=== PATIENT | female | born 1945 | race Caucasian/White ===

== ENCOUNTER 2017-04-14 01:52 | Inpatient (IN) | payer MEDICARE ==
[~2017-04-14] VITALS: Ht 152.4 cm; Wt 75.2 kg
[2017-04-14 01:55] VITALS: BP 108/56; PULSE 66; RESP 16; TEMP 98.1; O2SAT 98
--- NOTE | 2017-04-14 02:23 | PD ---
HPI Chief Complaint: Fall Time Seen by Provider: 02:02 Travel History International Travel<30 days: No Contact w/Intl Traveler<30days: No Traveled to known affect area: No History of Present Illness HPI The patient is a 71-year-old female who presents to the emergency department for a right wrist injury after falling. The patient states she went to check on an elderly neighbor earlier tonight in which she stepped back off of the porch for her neighbor opened a door she fell backwards injuring her right wrist. She does state she struck the right aspect of her head resulting in an abrasion but denies any loss of consciousness. She denies taking any blood thinners or anticoagulants. She does complain of right wrist pain with an obvious deformity, pain is moderate to severe, worse with movement, slightly alleviated with ice. The patient is right-hand dominant. She also notes abrasion to right lower extremity but was able to ambulate without difficulty. The patient does have a history of breast cancer, hypertension, and hyperlipidemia. The patient's primary physician is Dr. Caleb oJseph. [facility] Past Medical History Narrative Medical Hypertension, hyperlipidemia, breast cancer Cardiovascular Problems: Yes (HTN) Past Surgical History Narrative Surgical Lumpectomy with lymph node removal, tonsillectomy Social History Alcohol Use: Yes Tobacco Use: No Allergies-Medications (Allergen,Severity, Reaction): Coded Allergies: No Known Allergies (Unverified , 04/14/17) Review of Systems Except as stated in HPI: all other systems reviewed are Neg HENT: No: Headaches, Neck Pain Cardiovascular: No: Chest Pain or Discomfort Respiratory: No: Shortness of Breath Gastrointestinal: Positive: Nausea, No: Vomiting, Abdominal Pain Musculoskeletal: Positive: Limited ROM, Edema, Pain Neurologic: No: Paresthesia, Sensory Disturbance Physical Exam Narrative GENERAL: Awake, alert, pleasant 71-year-old female who appears her stated age and is in no acute respiratory distress. SKIN: Focused skin assessment warm/dry. HEAD: Superficial abrasion of the right temporal area. EYES: Pupils equal and round. Pupils are 3 mm bilateral and reactive. EOMs are intact. ENT: No nasal bleeding or discharge. Mucous membranes pink and moist. NECK: Trachea midline. No JVD. No tenderness of the cervical vertebrae. CARDIOVASCULAR: Regular rate and rhythm. No murmur appreciated. RESPIRATORY: No accessory muscle use. Clear to auscultation. Breath sounds equal bilaterally. GASTROINTESTINAL: Abdomen soft, non-tender, nondistended. No rebound tenderness. MUSCULOSKELETAL: Obvious deformities to the right wrist. Positive right radial pulse. Limited ability to move the fingers of the right hand or flex/extend the right wrist secondary to pain. No tenderness of the right elbow or proximal right radius/ulna. The patient does have a small puncture wound on the radial aspect, flexor surface that is less than 0.5 cm in diameter. I suspect open fracture which self reduced. NEUROLOGICAL: Awake and alert. No obvious cranial nerve deficits. Motor grossly within normal limits. Normal speech. Sensation is intact over the radial, median, and ulnar distribution of the right hand. PSYCHIATRIC: Appropriate mood and affect; insight and judgment normal. Data Data Last Documented VS Vital Signs Date Time Temp Pulse Resp B/P (MAP) Pulse Ox O2 Delivery O2 Flow Rate FiO2 04/14/17 03:20 96 Nasal Cannula 3.00 04/14/17 01:55 98.1 66 16 108/56 (73) Orders Orders Complete Blood Count With Diff (04/14/17 02:18) Basic Metabolic Panel (Bmp) (04/14/17 02:18) Act Partial Throm Time (Ptt) (04/14/17 02:18) Prothrombin Time / Inr (Pt) (04/14/17 02:18) Wrist, Limited (Ap&Lat) (04/14/17 ) Morphine Inj (Morphine Inj) (04/14/17 02:30) Ondansetron Inj (Zofran Inj) (04/14/17 02:30) Sodium Chlor 0.9% 1000 Ml Inj (Ns 1000 M (04/14/17 02:30) Propofol 200 Mg/20 Ml Inj (Diprivan 200 (04/14/17 03:15) Cefazolin 2 Gm Premix (Ancef 2 Gm Premix (04/14/17 03:30) Gentamicin 80 Mg Premix (Gentamicin 80 M (04/14/17 03:30) Wrist, Limited (Ap&Lat) (04/14/17 ) Consult Orthopedic (04/14/17 ) Tetanus/Diphtheria Tox Adult (Tetanus/Di (04/14/17 03:45) (Hub Use Only)Inp Phy Cons/Ref (04/14/17 ) Admit Order (Ed Use Only) (04/14/17 03:58) Labs Laboratory Tests Test 04/14/17 02:25 White Blood Count 17.6 TH/MM3 Red Blood Count 4.16 MIL/MM3 Hemoglobin 11.7 GM/DL Hematocrit 36.2 % Mean Corpuscular Volume 87.0 FL Mean Corpuscular Hemoglobin 28.2 PG Mean Corpuscular Hemoglobin Concent 32.4 % Red Cell Distribution Width 16.2 % Platelet Count 312 TH/MM3 Mean Platelet Volume 7.8 FL Neutrophils (%) (Auto) 50.8 % Lymphocytes (%) (Auto) 41.4 % Monocytes (%) (Auto) 5.6 % Eosinophils (%) (Auto) 1.1 % Basophils (%) (Auto) 1.1 % Neutrophils # (Auto) 8.9 TH/MM3 Lymphocytes # (Auto) 7.3 TH/MM3 Monocytes # (Auto) 1.0 TH/MM3 Eosinophils # (Auto) 0.2 TH/MM3 Basophils # (Auto) 0.2 TH/MM3 CBC Comment AUTO DIFF Prothrombin Time 9.5 SEC Prothromb Time International Ratio 0.9 RATIO Activated Partial Thromboplast Time 21.4 SEC Blood Urea Nitrogen 14 MG/DL Creatinine 0.62 MG/DL Random Glucose 133 MG/DL Calcium Level 8.4 MG/DL Sodium Level 136 MEQ/L Potassium Level 5.4 MEQ/L Chloride Level 106 MEQ/L Carbon Dioxide Level 22.3 MEQ/L Anion Gap 8 MEQ/L Estimat Glomerular Filtration Rate 95 ML/MIN MDM Medical Decision Making Medical Screen Exam Complete: Yes Emergency Medical Condition: Yes Medical Record Reviewed: Yes Interpretation(s) Last Impressions Wrist X-Ray 04/14/17 0000 Signed Impressions: Service Date/Time: Friday, April 14, 2017 02:22 - CONCLUSION: Distal radial fracture with significant posterior displacement of the hand and wrist. There is also a mildly displaced spiral fracture of the 4th metacarpal. Dale Benavidez MD Postreduction x-ray reveals improved alignment Laboratory Tests Test 04/14/17 02:25 White Blood Count 17.6 TH/MM3 Red Blood Count 4.16 MIL/MM3 Hemoglobin 11.7 GM/DL Hematocrit 36.2 % Mean Corpuscular Volume 87.0 FL Mean Corpuscular Hemoglobin 28.2 PG Mean Corpuscular Hemoglobin Concent 32.4 % Red Cell Distribution Width 16.2 % Platelet Count 312 TH/MM3 Mean Platelet Volume 7.8 FL Neutrophils (%) (Auto) 50.8 % Lymphocytes (%) (Auto) 41.4 % Monocytes (%) (Auto) 5.6 % Eosinophils (%) (Auto) 1.1 % Basophils (%) (Auto) 1.1 % Neutrophils # (Auto) 8.9 TH/MM3 Lymphocytes # (Auto) 7.3 TH/MM3 Monocytes # (Auto) 1.0 TH/MM3 Eosinophils # (Auto) 0.2 TH/MM3 Basophils # (Auto) 0.2 TH/MM3 CBC Comment AUTO DIFF Prothrombin Time 9.5 SEC Prothromb Time International Ratio 0.9 RATIO Activated Partial Thromboplast Time 21.4 SEC Blood Urea Nitrogen 14 MG/DL Creatinine 0.62 MG/DL Random Glucose 133 MG/DL Calcium Level 8.4 MG/DL Sodium Level 136 MEQ/L Potassium Level 5.4 MEQ/L Chloride Level 106 MEQ/L Carbon Dioxide Level 22.3 MEQ/L Anion Gap 8 MEQ/L Estimat Glomerular Filtration Rate 95 ML/MIN Differential Diagnosis Differential diagnosis includes fracture, dislocation, contusion, hematoma, closed head injury, abrasion. Narrative Course IV was established, labs are drawn and sent, and the patient was placed on cardiac telemetry monitoring and continuous pulse oximetry monitoring. X-ray of the right wrist was obtained. The patient received morphine, Zofran, and IV fluids. X-ray reveals a distal radial fracture with intra-articular displacement and involvement. I do discussion regarding conscious sedation with the patient who is agreeable for conscious sedation. The patient had IV fluids running, with respiratory therapy at bedside, nursing staff at bedside, and certified control systems technician at bedside the patient was administered propofol and the right wrist fracture was reduced. It was noted the patient had a small puncture wound on the distal radial aspect consistent with open fracture which had self reduced through the skin. After reduction the patient was placed in a splint and postreduction x-rays were obtained. The patient did have a Betadine dressing applied under the splint. The patient was administered Ancef and gentamicin. The patient will be kept nothing by mouth. Routine consult was place for orthopedics. The patient's primary physician was Dr. Caleb Joseph , therefore, [facility] to Dr. Kessler. Procedures Procedure Narrative After the risks and benefits were discussed the following procedure was performed: MODERATE SEDATION: The patient was placed on a room cleaner and pulse oximetry. An ambu bag and suction was immediately available at bedside. The patient was monitored by the nurse. Oxygen saturation, heart rate and blood pressure were monitored. Procedural sedation was acheived using 70 mg of propofol. The patient was observed until awake and alert. Procedural Sedation time in attendance was 30 minutes. The right wrist fracture was reduced under conscious sedation, Betadine dressing was applied as there was a small puncture wound at the site of the fracture. Sugar tong splint was applied and postreduction x-ray was obtained. The patient was neurovascularly intact after the procedure. The patient tolerated the procedure without difficulty and there was no obvious complications. Physician Communication Physician Communication The patient's primary physician is Dr. Caleb Joseph, therefore, [facility] I discussed the patient with Dr. Koenig who agrees with admission to Dr. Kessler. Diagnosis Primary Impression: Right wrist fracture Qualified Codes: S62.101B - Fracture of unspecified carpal bone, right wrist, initial encounter for open fracture Additional Impression: Metacarpal bone fracture Qualified Codes: S62.324A - Displaced fracture of shaft of fourth metacarpal bone, right hand, initial encounter for closed fracture Admitting Information Admitting Physician Requests: Admit Condition: Stable Gerber Banks MD Apr 14, 2017 02:23
[2017-04-14] MEDS ORDERED: SODIUM CHLOR 0.9% 1000 ML INJ 1,000 ML IV SCH ×2 (02:30→04:15)
[2017-04-14] MEDS ORDERED: MORPHINE SULFATE 4 MG/ML INJ IV PUSH ONE (02:30)
[2017-04-14] MEDS ORDERED: ONDANSETRON HCL 4 MG/2 ML VIAL IV PUSH ONE (02:30)
--- NOTE | 2017-04-14 02:49 | RADRPT ---
EXAM DATE/TIME: 04/14/2017 02:22 [facility] COMPARISON: No previous studies available for comparison. INDICATIONS : Pt fell, landed on right wrist MEDICAL HISTORY : None. SURGICAL HISTORY : None. ENCOUNTER: Initial ACUITY: 1 day PAIN SCORE: 8/10 LOCATION: Right Wrist FINDINGS: There is a transverse fracture through the radial metaphysis with greater than one shaft width dorsal displacement of the hand/wrist with respect to the radial shaft. There is also a spiral fracture of the 4th metacarpal bone with mild angulation. The radial epiphyseal fragment remains in alignment w ith the carpus. CONCLUSION: Distal radial fracture with significant posterior displacement of the hand and wrist. There is also a mildly displaced spiral fracture of the 4th metacarpal. Dale Benavidez MD on April 14, 2017 at 2:45 Board Certified Radiologist. This report was verified electronically.
[2017-04-14 03:03] LABS: APTT (PATIENT) 21.4 SEC (24.3-30.1); INTERNATIONAL NORMALIZED RATIO 0.9 RATIO; PROTHROMBIN TIME - PATIENT 9.5 SEC (9.8-11.6)
[2017-04-14 03:09] LABS: BICARBONATE 22.3 MEQ/L (21.0-32.0)
[2017-04-14 03:10] LABS: POTASSIUM 5.4 MEQ/L (3.5-5.1)
[2017-04-14] MEDS ORDERED: PROPOFOL 200 MG/20 ML AMP IV ONE (03:15)
[2017-04-14 03:19] LABS: AUTOMATED NEUTROPHIL # 8.9 TH/MM3 (1.8-7.7); BASOPHIL # 0.2 TH/MM3 (0-0.2); BASOPHIL % 1.1 % (0.0-2.0); EOSINOPHIL # 0.2 TH/MM3 (0-0.4); EOSINOPHIL % 1.1 % (0.0-4.0); HEMATOCRIT 36.2 % (35.0-46.0); LYMPH % 41.4 % (9.0-44.0); LYMPHOCYTE # 7.3 TH/MM3 (1.0-4.8); MEAN CORPUSCULAR HEMOGLOBIN 28.2 PG (27.0-34.0); MEAN CORPUSCULAR HGB CONC 32.4 % (32.0-36.0); MONO % 5.6 % (0.0-8.0); NEUT % 50.8 % (16.0-70.0); PLATELET COUNT 312 TH/MM3 (150-450); RED BLOOD COUNT 4.16 MIL/MM3 (4.00-5.30); RED CELL DISTRIBUTION WIDTH 16.2 % (11.6-17.2); WHITE BLOOD COUNT 17.6 TH/MM3 (4.0-11.0)
[2017-04-14 03:20] VITALS: O2SAT 96; O2SAT 98
[2017-04-14 03:22] LABS: HEMO FLAGS AUTO DIFF
[2017-04-14] MEDS ORDERED: GENTAMICIN 80 MG PREMIX 100 ML IV ONE (03:30)
[2017-04-14] MEDS ORDERED: ceFAZolin 2 GM PREMIX 50 ML IV ONE (03:30)
[2017-04-14] MEDS ORDERED: TETANUS/DIPHTHERIA TOXOID ADULT 0.5 ML VIAL IM ONE (03:45)
--- NOTE | 2017-04-14 04:14 | RADRPT ---
EXAM DATE/TIME: 04/14/2017 03:37 [facility] COMPARISON: WRIST RIGHT LIMITED(AP & LAT), April 14, 2017, 2:22. INDICATIONS : Post reduction of a right wrist fracture-dislocation. MEDICAL HISTORY : None. SURGICAL HISTORY : None. ENCOUNTER: Subsequent ACUITY: 1 day PAIN SCORE: 9/10 LOCATION: Right wrist FINDINGS: 2 views of the hand and distal forearm are performed in cast. There has been partial reduction of th e distal radial fracture. The fracture of the 4th metacarpal is in near-anatomic alignment as well. CONCLUSION: Status post reduction of distal radial and 4th metacarpal fractures, in cast. Dale Benavidez MD on April 14, 2017 at 4:11 Board Certified Radiologist. This report was verified electronically.
[2017-04-14] MEDS ORDERED: ONDANSETRON HCL 4 MG/2 ML VIAL IV PUSH PRN (04:15)
[2017-04-14] MEDS ORDERED: MORPHINE SULFATE 4 MG/ML INJ IV PUSH PRN ×2 (04:15→11:15)
[2017-04-14 04:36] LABS: CORRECTED NUCLEATED RBC 1 /100 WBC (0-0); MYELOCYTES 2 % (0-0); NEUTROPHIL # MANUAL DIFF 11.4 TH/MM3 (1.8-7.7); POLYS (SEG NEUTROPHILS) 63 % (16-70); WBC DIFF SAMPLE 100
[2017-04-14 04:37] LABS: PLATELET ESTIMATE SMEAR NORMAL (NORMAL); PLATELET MORPHOLOGY NORMAL (NORMAL); SCAN/DIFF FINAL DIFF MANUAL
[2017-04-14] MEDS ORDERED: GENTAMICIN 80 MG PREMIX 100 ML ONE (05:52)
[2017-04-14 06:30] VITALS: BP 166/78; PULSE 82; RESP 20; TEMP 98; O2SAT 96
[2017-04-14] MEDS ORDERED: POVIDONE IODINE 5% (ANTISEPSIS KIT) 4 APPLICATIONS EACH NARE PRN (06:45)
[2017-04-14] MEDS ORDERED: INSULIN HUMAN REGULAR 1,000 UNITS/10 ML VIAL SQ PRN (06:45)
[2017-04-14] MEDS ORDERED: CHLORHEXIDINE GLUCONATE 2 % 1 PACK (2 CLOTHS) TOPICAL PRN (06:45)
[2017-04-14] MEDS ORDERED: LACTATED RINGER'S 1000 ML IV PRN (06:45)
[2017-04-14 08:00] VITALS: BP 154/70; PULSE 91; RESP 18; TEMP 97.6; O2SAT 100
[2017-04-14] MEDS ORDERED: FAMOTIDINE 20 MG/2 ML VIAL ONE (09:31)
[2017-04-14] MEDS ORDERED: BUPIVACAINE HCL PF 0.25% 30 ML VIAL ONE (09:32)
[2017-04-14] MEDS ORDERED: LIDOCAINE HCL 1% 50 ML VIAL ONE (09:32)
[2017-04-14] MEDS ORDERED: GENTAMICIN SULFATE 80 MG/2 ML VIAL ONE (09:32)
[2017-04-14] MEDS ORDERED: ACETAMINOPHEN 1000 MG/100 ML 100 ML IV ONE (09:37)
--- NOTE | 2017-04-14 10:04 | HHI.HP ---
[facility] Primary Care Physician Caleb Joseph DO Admission Diagnosis open fracture right wrist, fourth metacarpal fracture Diagnoses: (1) Right wrist fracture Diagnosis: Principal (2) Metacarpal bone fracture Diagnosis: Principal Chief Complaint: 71-year-old female with accidental fall, at her neighbor's house on the back porch. She accidentally fell backwards injuring her right wrist. Denies any loss of consciousness but did bump the right side of her scalp. Small abrasion noted. Has small abrasion to right lower extremity, no obvious bleeding noted now. Currently patient is alert, awake, pain management for right wrist and forearm. Dressing and splint are secured, clean dry and intact Travel History International Travel<30 Days: No Contact w/Intl Traveler <30 Da: No Traveled to Known Affected Are: No History of Present Illness This is a 71-year-old white female who presented to the emergency room status post fall when coming out of her neighbors back porch. She she fell backwards falling to her right side injuring her right wrist right forearm right lower leg in the Route side of her scalp. Patient denied losing any consciousness. She does consume alcohol on an every other day basis according to her and her . This includes cognac and beer consumption. Currently patient is awake alert a fairly good historian. States that she has been fairly healthy, fall was accidental. Patient denies any chest pain, no shortness of breath, no dizziness, she denies any dysuria, and before this accident had been in her usual state of health. Review of Systems Musculoskeletal: COMPLAINS OF: Joint pain (right wrist right forearm), Joint Swelling (status post fall and fracture) Hematologic/lymphatic: COMPLAINS OF: Bruising (right lower leg) Past Family Social History Past Medical History Breast cancer Hypertension Hyperlipidemia Etoh Past Surgical History Left arm lymph node removal Tonsillectomy Reported Medications not listed Allergies: Coded Allergies: No Known Allergies (Unverified , 04/14/17) Active Ordered Medications Administered Medications Medications (Trade) Dose Ordered Sig/Blade Route PRN Reason Start Time Stop Time Status Last Admin Dose Admin Sodium Chloride 1,000 ml @ 100 mls/hr Q10H IV 04/14/17 04:15 04/14/17 04:38 Social History Denies any tobacco Alcohol every other day, which includes cognac and beer currently lives at home with her Physical Exam Vital Signs Vital Signs Date Time Temp Pulse Resp B/P (MAP) Pulse Ox O2 Delivery O2 Flow Rate FiO2 04/14/17 08:59 99.6 95 22 152/64 (93) 97 04/14/17 08:00 97.6 91 18 154/70 (98) 100 04/14/17 06:34 04/14/17 06:30 98.0 82 20 166/78 (107) 96 04/14/17 03:20 96 Nasal Cannula 3.00 04/14/17 03:20 98 04/14/17 03:20 96 3.00 04/14/17 01:55 98.1 66 16 108/56 (73) 98 Room Air Physical Exam GENERAL: This is a elderly well-developed patient, resting in the bed awake, responsive SKIN: Small abrasion on right side of for head, small abrasion on right lower leg Cool and dry. HEAD: Normocephalic. Alert oriented EYES: Pupils equal round and reactive. Extraocular motions intact. No scleral icterus. No injection or drainage. ENT: Nose without bleeding, purulent drainage or septal hematoma. Throat without erythema, tongue is midline Airway patent. NECK: Trachea midline. CARDIOVASCULAR: Regular rate and rhythm without murmurs, gallops, or rubs. RESPIRATORY: Clear to auscultation. GASTROINTESTINAL: Abdomen soft, non-tender, bowel sounds soft MUSCULOSKELETAL: Extremities without clubbing, cyanosis, or edema. NEUROLOGICAL: Awake and alert. Normal speech., Fair to good historian Laboratory Laboratory Tests Test 04/14/17 02:25 White Blood Count 17.6 Red Blood Count 4.16 Hemoglobin 11.7 Hematocrit 36.2 Mean Corpuscular Volume 87.0 Mean Corpuscular Hemoglobin 28.2 Mean Corpuscular Hemoglobin Concent 32.4 Red Cell Distribution Width 16.2 Platelet Count 312 Mean Platelet Volume 7.8 Neutrophils (%) (Auto) 50.8 Lymphocytes (%) (Auto) 41.4 Monocytes (%) (Auto) 5.6 Eosinophils (%) (Auto) 1.1 Basophils (%) (Auto) 1.1 Neutrophils # (Auto) 8.9 Lymphocytes # (Auto) 7.3 Monocytes # (Auto) 1.0 Eosinophils # (Auto) 0.2 Basophils # (Auto) 0.2 CBC Comment AUTO DIFF Differential Total Cells Counted 100 Neutrophils % (Manual) 63 Lymphocytes % 32 Monocytes % 3 Neutrophils # (Manual) 11.4 Myelocytes 2 Nucleated Red Blood Cells 1 Differential Comment FINAL DIFF MANUAL Platelet Estimate NORMAL Platelet Morphology Comment NORMAL Red Cell Morphology Comment NORMAL Prothrombin Time 9.5 Prothromb Time International Ratio 0.9 Activated Partial Thromboplast Time 21.4 Blood Urea Nitrogen 14 Creatinine 0.62 Random Glucose 133 Calcium Level 8.4 Sodium Level 136 Potassium Level 5.4 Chloride Level 106 Carbon Dioxide Level 22.3 Anion Gap 8 Estimat Glomerular Filtration Rate 95 Result Diagram: 04/14/175 04/14/17 0225 Imaging Last Impressions Wrist X-Ray 04/14/17 0000 Signed Impressions: Service Date/Time: Friday, April 14, 2017 03:37 - CONCLUSION: Status post reduction of distal radial and 4th metacarpal fractures, in cast. Dale Benavidez MD Course Reduction of right wrist in the emergency room setting Plan for surgical procedure today with right wrist right fourth metacarpal spiral fracture. Medical management with monitoring for fever, abnormal heart rate or respiratory rate Blood pressure management, medical management with medications Monitor for any increased anxiety or changes in personality related to outpatient EtOH usage Septic Shock Reassessment Heart: Regular rate and rhythm Lungs: Clear Skin: Warm, Moist, Reliance Peripheral Pulses: Bounding Left Radial Bounding Right Popliteal Bounding Left Popliteal Bounding Right Dorsalis Pedis Bounding Left Dorsalis Pedis Bounding Right Posterior Tibial Bounding Left Posterior Tibial Capillary Refill: Brisk Caprini VTE Risk Assessment Caprini VTE Risk Assessment: Mod/High Risk (score >= 2) VTE Pharm Contraindication: fall with fractures Caprini Risk Assessment Model Point Value = 1 Point Value = 2 Point Value = 3 Point Value = 5 Age 41-60 Minor surgery BMI > 25 kg/m2 Swollen legs Varicose veins or History of unexplained or recurrent spontaneous Oral contraceptives or hormone replacement Sepsis (< 1 month) Serious lung disease, including pneumonia (< 1 month) Abnormal pulmonary function Acute myocardial infarction Congestive heart failure (< 1 month) History of inflammatory bowel disease Medical patient at bed rest Age 61-74 Arthroscopic surgery Major open surgery (> 45 min) Laparoscopic surgery (> 45 min) Malignancy Confined to bed (> 72 hours) Immobilizing plaster cast Central venous access Age >= 75 History of VTE Family history of VTE Factor V Leiden Prothrombin [id number] Lupus anticoagulant Anticardiolipin antibodies Elevated serum homocysteine Heparin-induced thrombocytopenia Other congenital or acquired thrombophilia Stroke (< 1 month) Elective arthroplasty Hip, pelvis, or leg fracture Acute spinal cord injury (< 1 month) Prophylaxis Regimen Total Risk Factor Score Risk Level Prophylaxis Regimen 0-1 Low Early ambulation 2 Moderate Order ONE of the following: *Sequential Compression Device (SCD) *Heparin 5000 units SQ BID 3-4 Higher Order ONE of the following medications: *Heparin 5000 units SQ TID *Enoxaparin/Lovenox 40 mg SQ daily (WT < 150 kg, CrCl > 30 mL/min) *Enoxaparin/Lovenox 30 mg SQ daily (WT < 150 kg, CrCl > 10-29 mL/min) *Enoxaparin/Lovenox 30 mg SQ BID (WT < 150 kg, CrCl > 30 mL/min) AND/OR *Sequential Compression Device (SCD) 5 or more Highest Order ONE of the following medications: *Heparin 5000 units SQ TID (Preferred with Epidurals) *Enoxaparin/Lovenox 40 mg SQ daily (WT < 150 kg, CrCl > 30 mL/min) *Enoxaparin/Lovenox 30 mg SQ daily (WT < 150 kg, CrCl > 10-29 mL/min) *Enoxaparin/Lovenox 30 mg SQ BID (WT < 150 kg, CrCl > 30 mL/min) AND *Sequential Compression Device (SCD) Assessment and Plan Assessment and Plan Status post fall Fracture shaft of the fourth metacarpal bone right hand Status post fall Fracture of left distal radial wrist Orthopedic consult, appreciate plan a care, possible surgery pending Postop care and pain management per orthopedic team Pulse checks Leukocytosis, probable secondary to injury/fractures. Monitor labs Hyperkalemia mild, IV hydration and recheck labs am. EtOH usage Medical management with monitoring for any agitation or change in mental status Medications reconciled History of hypertension Medical management currently blood pressure 166/78, home meds reconciled DVT prophylaxis PUD prophylaxis Code Status Full code full aggressive care Discussed With: Family ( and patient's sister, and patient), Other (Dr. Kessler, seen on his behalf) Physician Certification 2 Midnight Certification Type: Admission for Inpatient Services Order for Inpatient Services The services are ordered in accordance with Medicare regulations or non- Medicare payer requirements, as applicable. In the case of services not specified as inpatient-only, they are appropriately provided as inpatient services in accordance with the 2-midnight benchmark. Estimated LOS (days): 4 4 days is the estimated time the patient will need to remain in the hospital, assuming treatment plan goals are met and no additional complications. Post-Hospital Plan: Not yet determined Problem Qualifiers (1) Right wrist fracture: Qualified Codes: S62.101B - Fracture of unspecified carpal bone, right wrist, initial encounter for open fracture (2) Metacarpal bone fracture: Qualified Codes: S62.324A - Displaced fracture of shaft of fourth metacarpal bone, right hand, initial encounter for closed fracture Tyra Sullivan Apr 14, 2017 10:03
[2017-04-14] MEDS ORDERED: BUPIVACAINE/EPINEPHRINE 0.25% 50 ML VIAL ONE (10:21)
--- NOTE | 2017-04-14 10:22 | MB ---
cc: MADDY COLE DATE OF CONSULTATION: 04/14/2017 REASON FOR CONSULTATION: Right possible open distal radius fracture with fourth metacarpal shaft fracture. HISTORY The patient is a 71-year-old female who was going over the hernia risk out to go check on an elderly woman she went up to the front porch the door was opening she stepped back and she tripped falling on to the right arm but she also scraped up multiple other body areas. She noticed immediate pain and deformity about the wrist. The patient was brought to [facility] [place] where she was found to have significantly displaced distal radius fracture of fourth metacarpal fracture. The patient had a closed reduction performed per the emergency room physician there is a suspicion that this is an open fracture. The patient says she did notice abrasions about the wrist. The patient denies any problems with the wrist in the past. She noted specific numbness or tingling about the fingers. Of note, the patient has a history of breast resection on the left side with a history of lymphedema of the left upper extremity. She says she has abrasions on the lower extremities as well. PAST MEDICAL HISTORY: Medical history is positive for hypertension, hyperlipidemia, breast cancer. PAST SURGICAL HISTORY Lumpectomy Tonsillectomy. SOCIAL HISTORY The patient does not drink alcohol or smoke. ALLERGIES NO KNOWN DRUG ALLERGIES. REVIEW OF SYSTEMS 12 point review of systems is negative except as noted in history of present illness. PHYSICAL EXAMINATION: VITAL SIGNS: The patient is vitals show a temperature 98.0, pulse is 82, respirations 20, blood pressure 166/78. IN GENERAL: The patient is awake, alert and oriented x3. She has normal affect insight and judgment. She is in no significant acute distress currently. HEAD, EYES, EARS, NOSE, AND THROAT: Her head is atraumatic. Oropharynx is moist. Extraocular muscles intact NECK: Her neck is supple. HEART: The heart is regular rate and rhythm. LUNGS: Clear excision bilaterally. ABDOMEN: Soft, nontender, nondistended. BACK: The back has no CVA tenderness. EXTREMITIES: Examination of the right upper extremities currently splinted. She has normal sensation to the ulnar and median nerves. She has difficulty moving her fingers due to pain I do not see a lot of swelling about the fingers. There is a little bit of bloody drainage. The left upper extremity had good range of motion. She is couple small abrasions on the dorsal aspect of the long finger in the palm but no obvious open significant wounds. I do not see any significant swelling about the left upper extremity. Even with a history of lymphedema. Examination of lower extremity shows she has some scattered abrasions on the lower extremities I do not see any significant swelling about the knees or ankles. She moves the toes well on both feet. She has an IV in the left foot. LABORATORY FINDINGS: Laboratory studies reveal white cell count of 17.6, hematocrit 36.2, platelets of out 312, coagulation INR 0.9. Chemistries 0.62 passive 5.4, glucose 133, calcium 8.4. RADIOLOGY: X-rays I reviewed the x-rays including reports, There are two sets of x-rays showing that the patient has a significantly displaced distal radius fracture which may be intra-articular. There is then closed reduction film which is splinted which shows much better alignment but still significant displacement angulation. There is a fourth metacarpal shaft fracture which is oblique in nature with just some mild displacement without significant angulation. IMPRESSION: Impression is right open distal radius fracture displaced and angulated status post closed reduction. Right hand fourth metacarpal shaft fracture mildly displaced. DECISION MAKING: I have reviewed the diagnosis in detail with the patient, I do recommend urgent surgical management for evaluation of the wrist as she may require irrigation and debridement for possible open fracture. Additionally, I do recommend of open reduction internal fixation versus external fixation of the wrist given the significant displacement and angulation. At the time of surgery. We can make definitive to the decision if we want to proceed with an open reduction internal fixation of the fourth metacarpal versus just casting of this area. She understands that there is a very serious problem especially given possibility of open fracture of the wrist and that she required intravenous antibiotics and she does have potential for infection which required surgical management in the repeat nature. She understands the risks of surgery include on to injury also bleeding, infection failure of the for operation, continued pain, loss range of motion in associated joints, DVT, pulmonary embolus, pneumonia and . The patient had does understand these risks also wants to follow up with surgical management. Maddy Cole MD /antionette /7:35 AM /9:14 AM
[2017-04-14] MEDS ORDERED: SODIUM CHLORIDE 0.9% FLUSH 10 ML FLUSH IV FLUSH PRN (11:15)
[2017-04-14] MEDS ORDERED: diphenhydrAMINE HCL 25 MG CAP PO PRN (11:15)
[2017-04-14] MEDS ORDERED: NALOXONE HCL 0.4 MG/ML AMP IV PRN (11:15)
[2017-04-14] MEDS ORDERED: Post-op Orders (for Pharmacy) MISC XX ONE (11:15)
[2017-04-14] MEDS ORDERED: ACETAMINOPHEN/HYDROcodone 325 MG/5 MG TAB PO PRN (11:15)
[2017-04-14] MEDS ORDERED: MAGNESIUM HYDROXIDE SUSP 30 ML CUP PO PRN (11:15)
[2017-04-14] MEDS ORDERED: MISCELLANEOUS PHARMACY INFORMATION XX ONE (11:15)
[2017-04-14] MEDS ORDERED: MISCELLANEOUS NURSING INFORMATION XX PRN (11:15)
--- NOTE | 2017-04-14 11:20 | PD.OP ---
cc: Marvin Veras MD Operative Report Right open distal radius fracture and closed fourth metacarpal fracture Postoperative Diagnosis: Right distal radius fracture 3 part intra-articular, closed. Right closed fourth metacarpal shaft fracture. Right forearm abrasion. Procedure: Right distal radius fracture, three-part intra-articular open reduction and internal fixation. Right fourth metacarpal shaft fracture open reduction and internal fixation. Anesthesia: Gen. Surgeon: Marvin Veras Environmental Field Services Technician(s): PACO Echevarria The surgical procedure was assisted by my Advanced Registered Nurse Practitioner. My INSPECTOR BALANCE WHEEL MOTION presence was necessary throughout this case for the manipulation and positioning of the surgical extremity. My INSPECTOR BALANCE WHEEL MOTION was assisting me throughout the duration of this procedure. The skill set of an Advance Registered Nurse Practitioner was medically necessary to complete this procedure. During the surgical case, the surgical instrument maker was working at the back table and the Advance Registered Nurse Practitioner was directly assisting me. Operation and Findings: Tourniquet time: 34 minutes at 250 mmHg of pressure Estimated blood loss: Minimal cc The patient received intravenous vancomycin and Ancef. After the appropriate anesthesia was administered, the patient's arm was prepped and draped in the usual sterile fashion. Local anesthetic was given, and the arm was exsanguinated. The tourniquet was raised to 250 mmHg of pressure. We made a standard incision over the volar aspect of the forearm. We then dissected through the flexor carpi radialis sub- sheath. The pronator quadratus was reflected. We now visualized the distal radius fracture very well. The fracture was anatomically reduced both visually and via fluoroscopy. We provisionally held the fracture reduced and then applied a Synthes precontoured distal radius plate into the appropriate position. The plate was secured to the distal radius first with the sliding screw hole. This was then followed by locking screws distally and proximally. We took final fluoroscopic imaging of the wrist. We found no intra-articular penetration of the screws. The patient had full range of motion of the wrist with no crepitus. We then turned our attention to the fourth metacarpal shaft fracture. We visualized this fluoroscopy which showed mild displacement. We decided to move forward with an ORIF. Dorsal incision was made on the hand. We identified the extensor tendon. This was gently retracted to the side. We dissected down to the fracture. We found the fracture to be oblique in nature. We anatomically reduced the fracture and held this with a fracture reduction clamp. We then applied a Synthes 1.5 T locking plate on the dorsal aspect of the fourth metacarpal. We secured this with multiple locking screws. We were able to achieve 4 locking screws proximally and 3 locking screws distally. We made sure that the distal screws did not penetrate onto the volar aspect of the articular cartilage when the finger was in full flexion. The fracture remained anatomic. The tourniquet was released and hemostasis was achieved. The patient had a 2+ radial pulse. We irrigated the incision thoroughly. We then closed skin with 2 -0 Vicryl followed by 3-0 nylon. The arm was dressed and a volar splint was applied. The postoperative plan is to start early range of motion of the wrist and fingers with some protection with splinting. Marvin Veras MD Apr 14, 2017 11:20
[2017-04-14] MEDS ORDERED: NORC5TAB PO (11:21)
[2017-04-14] MEDS ORDERED: *morphine SULFATE 8 MG/ML PERIprocedure ONLY ONE (12:04)
[2017-04-14] MEDS ORDERED: DO NOT ADM ANY ANTICOAGULANT DRUGS PRN (12:15)
[2017-04-14] MEDS: DEXT 5%-NACL 0.45% 1000 ML INJ 1,000 ML IV SCH ×2 (12:19→21:40)
[2017-04-14 12:21] LABS: AUTOMATED NEUTROPHIL # 12.8 TH/MM3 (1.8-7.7); BASOPHIL % 0.2 % (0.0-2.0); EOSINOPHIL % 0.1 % (0.0-4.0); HEMATOCRIT 32.2 % (35.0-46.0); HEMO FLAGS DIFF FINAL; LYMPH % 12.7 % (9.0-44.0); MEAN CELL VOLUME 87.3 FL (80.0-100.0); MEAN CORPUSCULAR HGB CONC 32.1 % (32.0-36.0); MONO % 4.3 % (0.0-8.0); NEUT % 82.7 % (16.0-70.0); PLATELET COUNT 265 TH/MM3 (150-450); RED BLOOD COUNT 3.69 MIL/MM3 (4.00-5.30); RED CELL DISTRIBUTION WIDTH 15.8 % (11.6-17.2); WHITE BLOOD COUNT 15.5 TH/MM3 (4.0-11.0)
[2017-04-14] MEDS ORDERED: *ONDANSETRON 4 MG VIAL PERIprocedural Use ONLY ONE (12:27)
--- NOTE | 2017-04-14 12:34 | RADRPT ---
EXAM DATE/TIME: 04/14/2017 12:06 [facility] COMPARISON: No previous studies available for comparison. INDICATIONS : Central line placement MEDICAL HISTORY : None. SURGICAL HISTORY : None. ENCOUNTER: Initial ACUITY: 1 day PAIN SCORE: Non-responsive. LOCATION: Bilateral chest FINDINGS: Portable AP view of the chest demonstrates a normal-sized cardiac silhouette. Right IJ central line d istal tip is in the superior vena cava. No pneumothorax is present. Lungs are mildly underinflated. M ultiple clips overlie the left axilla. CONCLUSION: Right IJ line distal tip is in the superior vena cava and no pneumothorax is visualized. Geo Figueroa MD on April 14, 2017 at 12:32 Board Certified Radiologist. This report was verified electronically.
--- NOTE | 2017-04-14 13:43 | RADRPT ---
EXAM DATE/TIME: 04/14/2017 10:42 [facility] COMPARISON: WRIST RIGHT LIMITED(AP & LAT), April 14, 2017, 3:37. INDICATIONS : Open reduction internal fixation of the right wrist. MEDICAL HISTORY : None. SURGICAL HISTORY : None. ENCOUNTER: Subsequent ACUITY: 1 day PAIN SCORE: Non-responsive. LOCATION: Right wrist. FINDINGS: AP and lateral views of the right wrist obtained in the operating room during a procedure documents a volar distal radial side plate with multiple interlocking screws. There is improved anatomic alignme nt. CONCLUSION: Improved alignment following distal radial ORIF. Geo Figueroa MD on April 14, 2017 at 13:41 Board Certified Radiologist. This report was verified electronically.
--- NOTE | 2017-04-14 13:50 | RADRPT ---
EXAM DATE/TIME: 04/14/2017 10:42 [facility] COMPARISON: WRIST RIGHT LIMITED(AP & LAT), April 14, 2017, 2:22. INDICATIONS : Open reduction internal fixation of the right hand. MEDICAL HISTORY : None. SURGICAL HISTORY : None. ENCOUNTER: Initial ACUITY: 1 day PAIN SCORE: Non-responsive. LOCATION: Right hand. FINDINGS: 4 spot fluoroscopic images obtained in the operating room during a procedure demonstrates placement o f a posterior sideplate at the fourth metacarpal. There are multiple interlocking screws. CONCLUSION: Improved alignment following ORIF of the right fourth metacarpal fracture. Geo Figueroa MD on April 14, 2017 at 13:48 Board Certified Radiologist. This report was verified electronically.
[2017-04-14] MEDS: ACETAMINOPHEN/HYDROcodone 325 MG/5 MG TAB PO PRN ×2 (14:53→18:03)
[2017-04-14 16:00] VITALS: PULSE 88; RESP 18; TEMP 97.1; O2SAT 95
--- NOTE | 2017-04-14 17:27 | EKG ---
Date Performed: 04/14/2017 Time Performed: 09:20:54 PTAGE: 71 years EKG: Sinus rhythm NORMAL ECG NO PREVIOUS TRACING DOCTOR: Alexis Watson Interpretating Date/Time 04/14/2017 17:26:25
[2017-04-14] MEDS: ONDANSETRON HCL 4 MG/2 ML VIAL IVP PRN (18:37)
[2017-04-14 19:30] VITALS: BP 151/61; PULSE 85; RESP 17; TEMP 97.3; O2SAT 93
[2017-04-14 20:04] LABS: BICARBONATE 24.2 MEQ/L (21.0-32.0); POTASSIUM 3.8 MEQ/L (3.5-5.1)
[2017-04-14] MEDS ORDERED: FAMOTIDINE 20 MG TAB PO SCH (21:00)
[2017-04-14] MEDS: DOCUSATE SODIUM 50 MG/SENNA 8.6 MG TAB PO SCH (21:35)
[2017-04-14] MEDS: SODIUM CHLORIDE 0.9% FLUSH 10 ML FLUSH IV FLUSH SCH (21:36)
[2017-04-15 00:45] VITALS: BP 147/68; PULSE 92; RESP 18; TEMP 99.8; O2SAT 96
[2017-04-15] MEDS: ACETAMINOPHEN/HYDROcodone 325 MG/5 MG TAB PO PRN ×4 (02:00→18:21)
[2017-04-15] MEDS: ONDANSETRON HCL 4 MG/2 ML VIAL IVP PRN ×4 (03:17→18:21)
[2017-04-15 04:32] VITALS: BP 149/67; PULSE 87; RESP 17; TEMP 98.7; O2SAT 96
[2017-04-15 04:45] LABS: AUTOMATED NEUTROPHIL # 9.9 TH/MM3 (1.8-7.7); BASOPHIL % 0.2 % (0.0-2.0); EOSINOPHIL % 0.1 % (0.0-4.0); HEMATOCRIT 29.5 % (35.0-46.0); HEMO FLAGS DIFF FINAL; LYMPH % 17.3 % (9.0-44.0); LYMPHOCYTE # 2.3 TH/MM3 (1.0-4.8); MEAN CELL VOLUME 86.6 FL (80.0-100.0); MEAN CORPUSCULAR HEMOGLOBIN 28.6 PG (27.0-34.0); MONO % 7.2 % (0.0-8.0); NEUT % 75.2 % (16.0-70.0); PLATELET COUNT 245 TH/MM3 (150-450); RED BLOOD COUNT 3.41 MIL/MM3 (4.00-5.30); RED CELL DISTRIBUTION WIDTH 15.9 % (11.6-17.2); WHITE BLOOD COUNT 13.1 TH/MM3 (4.0-11.0)
[2017-04-15] MEDS: DEXT 5%-NACL 0.45% 1000 ML INJ 1,000 ML IV SCH (07:35)
--- NOTE | 2017-04-15 07:52 | PD.ORT.PN ---
Subjective Post Op Day #: 1 Subjective Remarks Patient is resting in bed in NAD. Patient states she is ready to go home today. Objective Vitals Vital Signs Date Time Temp Pulse Resp B/P (MAP) Pulse Ox O2 Delivery O2 Flow Rate FiO2 04/15/17 04:32 98.7 87 17 149/67 (94) 96 04/15/17 00:45 99.8 92 18 147/68 (94) 96 04/14/17 19:30 97.3 85 17 151/61 (91) 93 04/14/17 16:00 97.1 88 18 95 04/14/17 15:53 18 04/14/17 12:45 98.5 87 16 154/67 (96) 96 Nasal Cannula 2 04/14/17 12:30 81 14 160/70 (100) 95 Nasal Cannula 2 04/14/17 12:15 80 16 168/73 (104) 97 Nasal Cannula 2 04/14/17 12:00 85 15 173/72 (105) 99 Nasal Cannula 2 04/14/17 11:51 97.3 87 18 177/72 (107) 100 Simple Mask 6 04/14/17 08:59 99.6 95 22 152/64 (93) 97 04/14/17 08:00 97.6 91 18 154/70 (98) 100 I/O 04/14/17 04/14/17 04/14/17 04/15/17 04/15/17 04/15/17 07:00 15:00 23:00 07:00 15:00 23:00 Intake Total 1730 ml 857 ml 440 ml Output Total 50 ml Balance 1680 ml 857 ml 440 ml Intake Oral 240 ml 220 ml 440 ml IV Total 1490 ml 637 ml Output Estimated Blood Loss 50 ml # Voids 1 2 4 # Bowel Movements 0 0 0 Result Diagram: 04/15/17 0250 04/14/17 1835 Procedures Right distal radius fracture, three-part intra-articular open reduction and internal fixation. Right fourth metacarpal shaft fracture open reduction and internal fixation. Objective Remarks Patient's splint is C/D/I. Sling in place. Patient moves hands and has good sensation to light touch in all fingers. Minimal swelling. + Cap Refill x 5 Assessment & Plan Ortho Post Op Day #: 1 Problem List: Assessment and Plan POD #1: Right distal radius fracture, three-part intra-articular open reduction and internal fixation. Right fourth metacarpal shaft fracture open reduction and internal fixation. 1. NWB RUE 2. Sling for comfort 3. Maintain splint. 4. Stable for discharge per ortho 5. F/U in the office in 1-[address] Veras or PACO Galindo Daniel Scott ARNP Apr 15, 2017 07:52
[2017-04-15 08:00] VITALS: BP 138/63; PULSE 95; RESP 18; TEMP 99.6; O2SAT 94
[2017-04-15 08:35] VITALS: O2SAT 95
[2017-04-15] MEDS ORDERED: MULTIVITAMINS/MINERALS THERAPEUTIC TAB PO SCH (09:00)
[2017-04-15] MEDS ORDERED: THIAMINE INJ 100 MG in SODIUM CHLORIDE 0.9% INJ 100 ML IV SCH (09:00)
[2017-04-15] MEDS: SODIUM CHLORIDE 0.9% FLUSH 10 ML FLUSH IV FLUSH SCH (09:00)
[2017-04-15] MEDS: DOCUSATE SODIUM 50 MG/SENNA 8.6 MG TAB PO SCH (09:00)
[2017-04-15 12:00] VITALS: BP 127/64; PULSE 100; RESP 18; TEMP 98.2; O2SAT 94
--- NOTE | 2017-04-15 12:04 | HHI.PR ---
Subjective Subjective Remarks Resting in the bed, Awake alert oriented Take in by mouth fluids good appetite good Mild nausea with pain meds but resolves with eating small amount of food Temp 99.6 Pain controlled with pain management Review of Systems Constitutional Constitutional: Weakness (mild postop right arm fracture repair) Constitutional Remarks 10 point ROS done positives noted GI/Abdomen GI/Abdominal Exam: Nausea (with pain medicines mild, no vomiting) Musculoskeletal MS: Weakness, Stiffness (right arm), Swelling (mild right arm) Integumentary Skin: Wounds (right arm) Psychiatric Psychiatric: Normal Mood Vitals/Results Vital Signs Vital Signs Date Time Temp Pulse Resp B/P (MAP) Pulse Ox O2 Delivery O2 Flow Rate FiO2 04/15/17 10:19 18 04/15/17 08:35 95 Nasal Cannula 2.00 04/15/17 08:00 99.6 95 18 138/63 (88) 94 04/15/17 04:32 98.7 87 17 149/67 (94) 96 04/15/17 00:45 99.8 92 18 147/68 (94) 96 04/14/17 19:30 97.3 85 17 151/61 (91) 93 04/14/17 16:00 97.1 88 18 95 04/14/17 12:45 98.5 87 16 154/67 (96) 96 Nasal Cannula 2 04/14/17 12:30 81 14 160/70 (100) 95 Nasal Cannula 2 04/14/17 12:15 80 16 168/73 (104) 97 Nasal Cannula 2 04/14/17 12:00 85 15 173/72 (105) 99 Nasal Cannula 2 CBC/BMP: 04/15/17 0250 04/14/17 1835 Lab Results Laboratory Tests Test 04/14/17 12:00 04/14/17 18:35 04/15/17 02:50 White Blood Count 15.5 TH/MM3 13.1 TH/MM3 Red Blood Count 3.69 MIL/MM3 3.41 MIL/MM3 Hemoglobin 10.3 GM/DL 9.7 GM/DL Hematocrit 32.2 % 29.5 % Mean Corpuscular Volume 87.3 FL 86.6 FL Mean Corpuscular Hemoglobin 28.0 PG 28.6 PG Mean Corpuscular Hemoglobin Concent 32.1 % 33.0 % Red Cell Distribution Width 15.8 % 15.9 % Platelet Count 265 TH/MM3 245 TH/MM3 Mean Platelet Volume 7.0 FL 7.5 FL Neutrophils (%) (Auto) 82.7 % 75.2 % Lymphocytes (%) (Auto) 12.7 % 17.3 % Monocytes (%) (Auto) 4.3 % 7.2 % Eosinophils (%) (Auto) 0.1 % 0.1 % Basophils (%) (Auto) 0.2 % 0.2 % Neutrophils # (Auto) 12.8 TH/MM3 9.9 TH/MM3 Lymphocytes # (Auto) 2.0 TH/MM3 2.3 TH/MM3 Monocytes # (Auto) 0.7 TH/MM3 1.0 TH/MM3 Eosinophils # (Auto) 0.0 TH/MM3 0.0 TH/MM3 Basophils # (Auto) 0.0 TH/MM3 0.0 TH/MM3 CBC Comment DIFF FINAL DIFF FINAL Differential Comment Blood Urea Nitrogen 10 MG/DL Creatinine 0.59 MG/DL Random Glucose 139 MG/DL Calcium Level 8.1 MG/DL Sodium Level 133 MEQ/L Potassium Level 3.8 MEQ/L Chloride Level 100 MEQ/L Carbon Dioxide Level 24.2 MEQ/L Anion Gap 9 MEQ/L Estimat Glomerular Filtration Rate 100 ML/MIN Physical Exam General General Appearance: Well Developed, No Acute Distress, Comfortable (with pain management), Obese (mild) Eyes Eye Exam: Pupils Equal, Pupils Reactive Ears & Nose Ears & Nose Exam: Nasal Mucosa Palomas Throat Throat Exam: Oral Mucosa [place] & Moist Neck Neck Exam: Neck Supple Pulmonary Resp Exam: Clear Bilaterally Cardiology CV Exam: Regular Gastrointestinal/Abdomen GI Exam: Soft, Non-Tender, Bowel Sounds Present Genitourinary Exam: Clear Urine Musculoskeletal MS Remarks POD 1, status post right radial fracture repair, and metacarpal with finger repair Integumentary Skin Exam: Clear, Warm, Dry, Intact Extremeties Extremities Exam: No Edema Neurologic Neuro Exam: Alert, Awake, Oriented, Speech Clear, Moving All Extremities ( Limited movement right arm status post surgical procedure) Assessment/Plan Assessment/Plan Fall, resulting in Right distal radius fracture, S/P three-part intra-articular open reduction and internal fixation. Right fourth metacarpal shaft fracture open reduction and internal fixation., POD day 1 maintain splint, post op care and pain management per orthopedic team. Okay to DC from orthopedic perspective, follow up in 1-2 weeks in the office.\ Fever low-grade 99 6, denies any acute pain, no dysuria Ambulating in pedro with family member, no problems with balance tolerating well Leukocytosis, probable secondary to injury/fractures. Monitor labs, 13.1 today resolving Hyperkalemia, noted blood was hemolyzed, noted on labs 3.8 today EtOH usage Medical management with monitoring for any agitation or change in mental status , no acute anxiety or symptoms of withdrawal History of hypertension Medical management, BP stable DVT prophylaxis PUD prophylaxis Discharge planning probable home today, discussed with Dr. Kessler,and patient, seen on his behalf Tyra Sullivan Apr 15, 2017 12:04
[2017-04-15 14:47] VITALS: RESP 18
[2017-04-15] MEDS ORDERED: ZOFR4TAB PO (17:42)
--- NOTE | 2017-04-15 18:32 | HHI.DS ---
Discharge Summary Admission Date Apr 14, 2017 at 04:00 Discharge Date: Apr 15, 2017 Admitting Diagnosis open fracture right wrist, fourth metacarpal fracture (1) Right wrist fracture ICD Codes: S62.101A - Fracture of unspecified carpal bone, right wrist, initial encounter for closed fracture Diagnosis: Principal Status: Acute (2) Metacarpal bone fracture ICD Codes: S62.309A - Unspecified fracture of unspecified metacarpal bone, initial encounter for closed fracture Diagnosis: Principal Status: Acute Procedures Surgery Brief History This was a 71-year-old white female who presented to the emergency room status post fall when coming out of her neighbors back porch. She fell backwards falling to her right side injuring her right wrist right forearm right lower leg in the right side of her scalp. Patient denied losing any consciousness. She admitted to consuming alcohol on an every other day basis according to her and her . This includes cognac and beer consumption. Currently patient was awake, alert, a fairly good historian. Stated that she had been fairly healthy, fall was accidental. Patient denied any chest pain, no shortness of breath, no dizziness, she denied any dysuria, and before this accident had been in her usual state of health. CBC/BMP: 04/15/17 0250 04/14/17 1835 Significant Findings Laboratory Tests Test 04/14/17 02:25 04/14/17 12:00 04/14/17 18:35 04/15/17 02:50 White Blood Count 17.6 TH/MM3 (4.0-11.0) 15.5 TH/MM3 (4.0-11.0) 13.1 TH/MM3 (4.0-11.0) Neutrophils # (Auto) 8.9 TH/MM3 (1.8-7.7) 12.8 TH/MM3 (1.8-7.7) 9.9 TH/MM3 (1.8-7.7) Lymphocytes # (Auto) 7.3 TH/MM3 (1.0-4.8) Monocytes # (Auto) 1.0 TH/MM3 (0-0.9) 1.0 TH/MM3 (0-0.9) Neutrophils # (Manual) 11.4 TH/MM3 (1.8-7.7) Myelocytes 2 % (0-0) Nucleated Red Blood Cells 1 /100 WBC (0-0) Prothrombin Time 9.5 SEC (9.8-11.6) Activated Partial Thromboplast Time 21.4 SEC (24.3-30.1) Random Glucose 133 MG/DL (74-106) 139 MG/DL (74-106) Calcium Level 8.4 MG/DL (8.5-10.1) 8.1 MG/DL (8.5-10.1) Potassium Level 5.4 MEQ/L (3.5-5.1) Red Blood Count 3.69 MIL/MM3 (4.00-5.30) 3.41 MIL/MM3 (4.00-5.30) Hemoglobin 10.3 GM/DL (11.6-15.3) 9.7 GM/DL (11.6-15.3) Hematocrit 32.2 % (35.0-46.0) 29.5 % (35.0-46.0) Neutrophils (%) (Auto) 82.7 % (16.0-70.0) 75.2 % (16.0-70.0) Sodium Level 133 MEQ/L (136-145) Imaging Last Impressions Wrist X-Ray 04/14/17 Signed Impressions: Service Date/Time: Friday, April 14, 2017 10:42 - CONCLUSION: Improved alignment following distal radial ORIF. Geo Figueroa MD Hand X-Ray 04/14/17 Signed Impressions: Service Date/Time: Friday, April 14, 2017 10:42 - CONCLUSION: Improved alignment following ORIF of the right fourth metacarpal fracture. Geo Figueroa MD Chest X-Ray 04/14/17 Signed Impressions: Service Date/Time: Friday, April 14, 2017 12:06 - CONCLUSION: Right IJ line distal tip is in the superior vena cava and no pneumothorax is visualized. Geo Figueroa MD PE at Discharge General General Appearance: Well Developed, No Acute Distress, Comfortable (with pain management), Obese (mild) Eyes Eye Exam: Pupils Equal, Pupils Reactive Ears & Nose Ears & Nose Exam: Nasal Mucosa [place] Throat Throat Exam: Oral Mucosa [place] & Moist Neck Neck Exam: Neck Supple Pulmonary Resp Exam: Clear Bilaterally Cardiology CV Exam: Regular Gastrointestinal/Abdomen GI Exam: Soft, Non-Tender, Bowel Sounds Present Genitourinary Exam: Clear Urine Musculoskeletal MS Remarks POD 1, status post right radial fracture repair, and metacarpal with finger repair Integumentary Skin Exam: Clear, Warm, Dry, Intact Extremeties Extremities Exam: No Edema Neurologic Neuro Exam: Alert, Awake, Oriented, Speech Clear, Moving All Extremities ( Limited movement right arm status post surgical procedure) Hospital Course These are the diagnoses that were used treat this patient during this brief hospital stay. Consultations included orthopedic surgery team and physician, hospitalist for admission and discharge oversee. Fall, resulting in Right distal radius fracture, S/P three-part intra-articular open reduction and internal fixation. Right fourth metacarpal shaft fracture open reduction and internal fixation., POD day 1 on discharge date maintain splint, post op care and pain management per orthopedic team. Okay to DC from orthopedic perspective, follow up in 1-2 weeks in the office.\ Fever low-grade 99 6, denies any acute pain, no dysuria Ambulating in pedro with family member, no problems with balance tolerating well Leukocytosis, probable secondary to injury/fractures. Monitor labs, 13.1 today resolving Hyperkalemia, noted blood was hemolyzed, noted on labs 3.8 today EtOH usage Medical management with monitoring for any agitation or change in mental status , no acute anxiety or symptoms of withdrawal History of hypertension Medical management, BP stable DVT prophylaxis PUD prophylaxis Discharge planning probable home today, discussed with Dr. eKssler,and patient, seen on his behalf Dr. Kessler evaluated patient on day of discharge and felt she was medically stable. Ortho also evaluated and felt she was medically stable and can follow up in the office. Medications were reconciled and new prescriptions were given to patient as needed. No acute distress on discharge Pt Condition on Discharge: Stable Discharge Disposition: Discharge Home Discharge Instructions DIET: Follow Instructions for: Diabetic Diet Additional Diet Instructions: No alcohol Activities you can perform: Non Weight Bearing Follow up Referrals: Orthopedics with Marvin Veras MD New Medications: Hydrocodone-Acetaminophen ([place]) 5-325 mg Tab 1-2 TAB PO Q4H PRN for PAIN, #40 TAB 0 Refills Ondansetron (Zofran) 4 Mg Tab 4 MG PO Q6HR PRN for NAUSEA OR VOMITING for 7 Days, #20 TAB 0 Refills Tyra Sullivan Apr 15, 2017 18:32
== END 2017-04-15 18:52 | disposition home health service (06) | DRG 512 ==
LOC: NEPE 01:52 → NEDA 04:00 → N06A 06:22
PROVIDERS: ADMIT Specialist; ATTEND Specialist
PROC: 0PSP04Z Reposition Right Metacarpal with Internal Fixation Device, Open Approach (ICD-10-PCS; 2017-04-14)
PROC: 0PSHXZZ Reposition Right Radius, External Approach (ICD-10-PCS; 2017-04-14)
PROC: 0PSH04Z Reposition Right Radius with Internal Fixation Device, Open Approach (ICD-10-PCS; principal; 2017-04-14 09:41)
DX: S52.571B Other intraarticular fracture of lower end of right radius, initial encounter for open fracture type I or II (principal); E87.5 Hyperkalemia; R50.9 Fever, unspecified; S62.324A Displaced fracture of shaft of fourth metacarpal bone, right hand, initial encounter for closed fracture; I10 Essential (primary) hypertension; E78.5 Hyperlipidemia, unspecified; D72.829 Elevated white blood cell count, unspecified; S80.811A Abrasion, right lower leg, initial encounter; S50.811A Abrasion of right forearm, initial encounter; S00.81XA Abrasion of other part of head, initial encounter; R11.0 Nausea; W19.XXXA Unspecified fall, initial encounter; Y92.008 Other place in unspecified non-institutional (private) residence as the place of occurrence of the external cause; Z85.3 Personal history of malignant neoplasm of breast
CPT/HCPCS: 25605; 71010; 73100; 73130; 76000; 80048; 85007; 85025; 85027; 85610; 85730; 90714; 93005; 94150; 96361; 96365; 96375; 99152; 99153; J0131; J0690; J1580; J2270; J2405; J3411; J7030